=== PATIENT | female | born 1990 | race Caucasian/White ===

== ENCOUNTER → 2019-05-07 | Outpatient (CLI) | payer OTHER ==
--- NOTE | 2019-05-08 01:51 | RAD ---
EXAM DESCRIPTION: Nasal Bones CLINICAL HISTORY: 29 years Female, NASAL CONGESTION,EPISTAZIS, FX OF NASAL BONES CLOSED FX COMPARISON: None. TECHNIQUE: 3 views of the nasal bone IMPRESSION: No acute displaced fracture of the nasal bone. Remaining included osseous structures are intact. Visualized maxillary and frontal sinuses appear clear. Nasal septum is midline. Included soft tissues unremarkable. No radiopaque foreign body. Electronically signed by: Mehran Lawrence MD 05/08/2019 1:49 AM CDT
== END ==
LOC: RAD 10:38
PROVIDERS: ATTEND Student in an Organized Health Care Education/Training Program
DX: R09.81 Nasal congestion (principal); R04.0 Epistaxis